=== PATIENT | female | born 1995 | race Caucasian/White ===

== ENCOUNTER → 2016-12-07 | Outpatient (REF) | payer OTHER ==
[2016-12-07 18:35] LABS: MEAN CORPUSCULAR HEMOGLOBIN 30.7 pg (27.0-33.0); MEAN CORPUSCULAR HGB CONC 33.4 g/dl (32.0-36.5); MEAN CORPUSCULAR VOLUME 91.9 fl (80.0-96.0); RED CELL DISTRIBUTION WIDTH 12.9 % (11.5-14.5); WHITE BLOOD COUNT 8.1 K/mm3 (4.0-10.0)
[2016-12-07 19:31] LABS: HCG, SERUM QUANTITATIVE 7236 MIU/ML
== END ==
LOC: M LAB REF 16:50
PROVIDERS: ATTEND Advanced Practice Midwife
DX: O36.80X0 Pregnancy with inconclusive fetal viability, not applicable or unspecified (principal); Z32.01 Encounter for pregnancy test, result positive; Z3A.00 Weeks of gestation of pregnancy not specified

== ENCOUNTER 2017-02-14 15:53 | Emergency (ER) | payer MEDICAID, OTHER, SELFPAY ==
[~2017-02-14] VITALS: Ht 160 cm; Wt 49.1 kg
[2017-02-14] MEDS ORDERED: NS 1,000 ML IV ONE (16:30)
[2017-02-14] MEDS ORDERED: ONDANSETRON 4MG/2ML VIAL (J2405) IV ONE (16:45)
[2017-02-14 17:45] VITALS: BP 110/58
== END 2017-02-14 17:50 | disposition home or self-care (01) ==
LOC: M ED 15:53
DX: O21.9 Vomiting of pregnancy, unspecified (principal); Z3A.15 15 weeks gestation of pregnancy
CPT/HCPCS: 96374; 99283; J2405

== ENCOUNTER 2017-04-06 07:58 | Outpatient (CLI) | payer SELFPAY, MEDICAID ==
[~2017-04-06] VITALS: Ht 160 cm; Wt 53.0 kg
[2017-04-06 08:10] VITALS: BP 119/70
[2017-04-06] MEDS ORDERED: PRENTAB9 PO (08:47)
[2017-04-06 10:00] VITALS: BP 106/63
--- NOTE | 2017-04-20 14:22 | IPNPDOC ---
Text Note Date of Service The patient was seen on 04/06/17 at 10:00. NOTE Subjective: Patient is a 22 year-old female who is a at 22.2 weeks gestation with an WM of 08/08/17 based off of her 1st trimester ultrasound. She presents to L&D today after being sent over from work for cramping. She reports that she hasn't drank much fluid. States the cramping started when she got to work at 0700. She denies vaginal bleeding, leaking of fluid or vaginal bleeding. Reports urine being very dark and almost red. Reports active movement. Objective: FHR baseline 150. Contractions: none noted on EFM. Abdomen: gravid, nontender to palpation. No CVA tenderness. Vital signs: see below. UA: see below. Assessment: IUP at 22.2 weeks gestation, cramping, not in labor Plan: UA/C&S sent to lab. Patient given 900 cc of fluid and encouraged to drink fluid. After drinking fluid patient reports that cramping was gone and it was noted that her urine was yellow and not red. Patient to be discharged to home and is to follow up with her scheduled OB appointments. Patient encouraged to drink half her body weight in ounces daily. Reviewed the importance of staying hydrated during . Reviewed access to care and danger signs to report. VS,Fishbone, I+O VS, Fishbone, I+O Vital Signs Label Value Date Time Patient Temperature 99.2 degrees F 04/06/17 0810 Temperature Source Temporal 04/06/17 0810 Pulse 100 04/06/17 0810 Respiratory Rate 18 bpm 04/06/17 0810 Blood Pressure Assessment 119/70 (86) 04/06/17 0810 Source Automatic Cuff (NIBP) Pulse 90 04/06/17 1000 Respiratory Rate 18 bpm 04/06/17 1000 Blood Pressure Assessment 106/63 (77) 04/06/17 1000 Source Automatic Cuff (NIBP) Item Value Date Time Urine Color RED H 04/06/17 0857 Urine Appearance CLOUDY H 04/06/17 0857 Urine pH 5.0 UNITS 04/06/17 0857 Urine Specific Adell 1.017 04/06/17 0857 Urine Protein 2+ mg/dL H 04/06/17 0857 Urine Glucose (UA) NEGATIVE mg/dL 8/22/17 0857 Urine Ketones NEGATIVE mg/dL 04/06/17856 Urine Blood 3+ H 04/06/17856 Urine Nitrite NEGATIVE 04/06/17856 Urine Bilirubin NEGATIVE 04/06/17856 Urine Urobilinogen 0.2 mg/dL 04/06/17856 Urine WBC (Auto) 7 /HPF H 04/06/17856 Urine RBC (Auto) TNTC /HPF H 04/06/17856 Urine Hyaline Casts (Auto) 0 /LPF 04/06/17856 Urine Bacteria (Auto) NEGATIVE 04/06/17856 Urine Squamous Epithelial Cells 2 /HPF 04/06/17856 Urine Leukocyte Esterase NEGATIVE 04/06/17856 SPEC #: [id number] ANUSHKA: 04/06/17 STATUS: COMP REQ #: [id number] RECD: 04/06/[address]: REGGIE MASSEY SOURCE: URINE CC ENTR: 04/06/[address]: Salas GrahamESC: COMP: 04/07/17 ORDERED: URINE CULT ACT WKST: NEW 04/07/17 #1 Procedure Result Site DEPARTMENT OF MICROBIOLOGY ROUTINE CULTURE RESULTS URINE CULTURE Final FULL REPORT IN LAB NOTES (eCW and [facility]). NO GROWTH REGGIE MASSEY CNM Apr 20, 2017 14:22
== END 2017-04-06 11:50 | disposition home or self-care (01) ==
LOC: M LDO 07:58
PROVIDERS: ATTEND Obstetrics & Gynecology
DX: O26.892 Other specified pregnancy related conditions, second trimester (principal); Z3A.22 22 weeks gestation of pregnancy; R10.9 Unspecified abdominal pain; Z88.2 Allergy status to sulfonamides

== ENCOUNTER → 2017-05-20 | Outpatient (CLI) | payer MEDICAID, OTHER ==
[~2017-05-20] MED LIST: PRENTAB9 PO
[2017-05-20 16:28] LABS: MEAN CORPUSCULAR HEMOGLOBIN 30.6 pg (27.0-33.0); MEAN CORPUSCULAR HGB CONC 33.4 g/dl (32.0-36.5); MEAN CORPUSCULAR VOLUME 91.6 fl (80.0-96.0); RED CELL DISTRIBUTION WIDTH 12.6 % (11.5-14.5)
[2017-05-21 11:14] LABS: WHITE BLOOD COUNT 14.2 10^3/uL (4.0-10.0)
== END ==
LOC: M LAB 14:55
PROVIDERS: ATTEND Advanced Practice Midwife
DX: Z34.82 Encounter for supervision of other normal pregnancy, second trimester (principal)

== ENCOUNTER → 2017-07-06 | Outpatient (REF) | payer OTHER, MEDICAID | LOC: M LAB REF 16:34 | PROVIDERS: ATTEND Advanced Practice Midwife | DX: Z34.83 Encounter for supervision of other normal pregnancy, third trimester (principal); Z3A.35 35 weeks gestation of pregnancy ==

== ENCOUNTER 2017-07-30 12:07 | Inpatient (IN) | payer OTHER, MEDICAID ==
[~2017-07-30] VITALS: Ht 160 cm; Wt 61.5 kg
[2017-07-30 12:25] VITALS: BP 122/57
[2017-07-30] MEDS ORDERED: LACTATED RINGER'S 1000 ML IV ONE (13:15)
[2017-07-30] MEDS ORDERED: LR 1,000 ML IV SCH (15:02)
[2017-07-30 15:36] LABS: MEAN CORPUSCULAR HEMOGLOBIN 27.9 pg (27.0-33.0); MEAN CORPUSCULAR HGB CONC 32.2 g/dl (32.0-36.5); MEAN CORPUSCULAR VOLUME 86.9 fl (80.0-96.0); PLATELET COUNT, AUTOMATED 306 10^3/uL (150-450); RED CELL DISTRIBUTION WIDTH 14.7 % (11.5-14.5); WHITE BLOOD COUNT 13.5 10^3/uL (4.0-10.0)
[2017-07-30 19:17] VITALS: BP 115/65
[2017-07-30 19:38] VITALS: BP 122/57
--- NOTE | 2017-07-30 20:19 | HPE ---
DATE OF ADMISSION: 07/30/2017 Mila is a 22-year-old female 1, para 0 with an EDC of 08/08/2017, estimated gestational age (EGA) 38-6/7 weeks gestation who presented to labor and delivery with complaints of contractions every 3-4 minutes. She was monitored in labor and delivery for approximately 2 hours, found to be 3 cm, 80% with a fetus at -2. At this point she is being admitted for labor. Upon admission no bleeding. No leakage of fluid. Good movement. Her record reviewed, fetus has a agenesis of the right kidney. Other than that her course was essentially unremarkable. LABS: Blood type is O+, rubella immune, hepatitis negative, HIV negative, GC chlamydia negative, 1-hour sugar testing was within normal limits. Her GBS is negative. PAST MEDICAL HISTORY: 1. Significant for frequent urinary tract infections (UTIs) for which she has seen urology. 2. Migraines. PAST SURGICAL HISTORY: She had left foot surgery and bilateral tubes placed in the ears. SOCIAL HISTORY: She denies any alcohol, drug or cigarette smoking. FAMILY HISTORY: Significant for DVTs and diabetes. MEDICATIONS: vitamins. ALLERGIES: SULFA DRUGS. PHYSICAL EXAMINATION: Normal-appearing female in no acute distress. Abdomen: Soft, nontender, nondistended. Extremities: No clubbing, cyanosis or edema. Vaginal examination: 3 cm, 80% -2, fetus in the vertex position. Tracing reviewed: Category one tracing with contractions every 4-5 minutes. ASSESSMENT: 1. Intrauterine at 38-6/7 weeks gestation. 2. Early labor. PLAN: Admit to labor and delivery, continue IV fluid hydration. Routine labs sent. Pain management discussed. The patient opted for no pain meds at this point. Will continue to monitor to see if her labor progressed to active labor.
== END 2017-07-30 22:55 | disposition home or self-care (01) | DRG 565 ==
LOC: M LDO 12:07 → M LDI 15:03
PROVIDERS: ADMIT Obstetrics & Gynecology; ATTEND Obstetrics & Gynecology
DX: O47.1 False labor at or after 37 completed weeks of gestation (principal); Z3A.38 38 weeks gestation of pregnancy

== ENCOUNTER 2017-07-31 07:57 | Inpatient (IN) | payer OTHER, MEDICAID ==
[2017-07-31] VITALS (39 sets, daily range): BP systolic 98–142; BP diastolic 51–90
[~2017-07-31] VITALS: Ht 160 cm; Wt 62.8 kg
[2017-07-31] MEDS ORDERED: LACTATED RINGER'S 1000 ML IV STA (08:33)
[2017-07-31] MEDS ORDERED: LR 1,000 ML IV SCH (08:33)
--- NOTE | 2017-07-31 09:10 | HPE ---
DATE OF ADMISSION: 07/30/2017 REASON FOR VISIT: Contractions. HISTORY OF PRESENT ILLNESS: Ms. Barraza is a 22-year-old, 1, who presents at 38 weeks 4 days estimated gestational age by her last menstrual period and confirmed by first trimester ultrasound with complaints of contractions. She reports contractions throughout the day. She had presented to labor and delivery for evaluation. Initially, she 1 cm dilated and then progressed to 3 cm, 80% effaced, -2 station. Her course has been remarkable with a right renal akinesis. Her care was initiated in the first trimester at [facility] and has been appropriate throughout. PAST MEDICAL HISTORY: None. PAST SURGICAL HISTORY: She has had foot surgery. SOCIAL HISTORY: Denies any alcohol, tobacco, or drugs during her . MEDICATIONS: Include: - Tylenol - vitamins - iron - Colace ALLERGIES: SULFA ANTIBIOTICS PHYSICAL EXAMINATION: VITAL SIGNS: Stable. She is afebrile. She has category 1 heart rate tracing with contractions 4 to 5 minutes apart, initially spaced out with prolonged monitoring. GENERAL APPEARANCE: Well appearing. No acute distress. LUNGS: Clear to auscultation bilaterally. CARDIOVASCULAR: Heart regular rate and rhythm. ABDOMEN: Gravid, nontender. CERVICAL EXAMINATION: She was initially assessed and was 3 cm dilated, 80% effaced, -2 station. After several hours, Ms. Barraza was reevaluated and cervical examination was no change after approximately 6 hours. LABORATORY DATA: laboratories: O positive, antibody screen negative. Rubella equivocal. RPR nonreactive. Hepatitis surface antigen negative. HIV negative. Hepatitis C nonreactive. Chlamydia and gonorrhea screens were negative. She has a normal one-hour Glucola. She is Group B streptococcus (GBS) negative. ASSESSMENT: 1. Ms. Barraza is a 22-year-old, 1, at 38 weeks 5 days estimated gestational age with contractions, not in active labor. 2. Reassuring status. PLAN: The patient was given the option for reevaluation over the next couple of hours or to be released to go home and will return with increased contractions or leakage of fluid. After discussion, the patient desires to be released home. She was given labor precautions. She will be followed up with her primary planner/scheduler on Wednesday for induction of labor. YORDAN
[2017-07-31 09:13] LABS: MEAN CORPUSCULAR HEMOGLOBIN 28.3 pg (27.0-33.0); MEAN CORPUSCULAR HGB CONC 32.9 g/dl (32.0-36.5); MEAN CORPUSCULAR VOLUME 85.9 fl (80.0-96.0); PLATELET COUNT, AUTOMATED 272 10^3/uL (150-450); RED CELL DISTRIBUTION WIDTH 14.6 % (11.5-14.5); WHITE BLOOD COUNT 13.6 10^3/uL (4.0-10.0)
[2017-07-31] MEDS ORDERED: FENTANYL 2MCG/ML ROPIVACAINE 0.2% IN 0.9% NACL 200ML IVBAG As Ordered ONE (10:03)
[2017-07-31] MEDS ORDERED: diphenhydrAMINE INJ 50MG/ML VIAL (J1200) IV PRN (11:00)
[2017-07-31] MEDS ORDERED: REFRIGERATOR IV KEYS XX PRN (11:00)
[2017-07-31] MEDS ORDERED: LACTATED RINGER'S 1000 ML IV PRN (11:00)
[2017-07-31] MEDS ORDERED: EPIDURAL/PCA KEYS XX PRN (11:00)
[2017-07-31] MEDS ORDERED: FENTANYL/ROPIVACAINE/NACL BAG 200 ML EPIDURAL SCH (11:00)
[2017-07-31] MEDS ORDERED: EPIDURAL COMMENT XX SCH (11:00)
[2017-07-31] MEDS ORDERED: ONDANSETRON 4MG/2ML VIAL (J2405) IV PRN (11:00)
[2017-07-31] MEDS ORDERED: NALOXONE INJ 0.4 MG/1 ML VIAL (J2310) IV PRN (11:00)
[2017-07-31] MEDS ORDERED: ePHEDrine SULFATE 25 MG/5 ML(5MG/ML) SYRINGE IV PRN (11:00)
[2017-07-31] MEDS ORDERED: OXYTOCIN 30 UNITS IN 0.9% NaCl 500ML IV BAG (J2590) As Ordered ONE (13:41)
[2017-07-31] MEDS ORDERED: OXYTOCIN DRIP 30 UNITS in APPROPRIATE DILUENT 1 EA IV SCH (16:41)
[2017-07-31] MEDS ORDERED: IBUPROFEN 800 MG TAB PO PRN (16:45)
[2017-07-31] MEDS ORDERED: ANUSOL HC CREAM 30GM TOP PRN (16:45)
[2017-07-31] MEDS ORDERED: MOM 30ML SUSPENSION UDC PO PRN (16:45)
[2017-07-31] MEDS ORDERED: MEASLES,MUMPS,RUBELLA VACCINE INJ (MMR-II) (90707) SC SCH (16:45)
[2017-07-31] MEDS ORDERED: DIBUCAINE 1% OINTMENT 30GM TOP PRN (16:45)
[2017-07-31] MEDS ORDERED: METHYLERGONOVINE MALEATE 0.2 MG TAB PO PRN (16:45)
[2017-07-31] MEDS ORDERED: RHOGAM 300 MCG (1500 IU) INJ (J2790) IM SCH (16:45)
[2017-07-31] MEDS ORDERED: ACETAMINOPHEN 500 MG TAB PO PRN (16:45)
[2017-07-31] MEDS ORDERED: DOCUSATE SODIUM 100 MG CAP PO PRN (16:45)
--- NOTE | 2017-07-31 20:49 | HPE ---
DATE OF ADMISSION: 07/31/2017 REASON FOR ADMISSION: Labor. HISTORY OF PRESENT ILLNESS: Ms. Barraza is a 22-year-old, 1, who presents at 38 weeks 5 days estimated gestational age by her last menstrual period, confirmed by a first trimester ultrasound, with complaints of contractions. She reports contractions that have increased in frequency and intensity throughout the evening and morning. She reports active movement. Denies any vaginal bleeding or leakage of fluid. Her course has been remarkable for right renal agenesis. Her care was initiated in the first trimester at [facility] and has been appropriate throughout. PAST MEDICAL HISTORY: None. PAST SURGICAL HISTORY: She had foot surgery. SOCIAL HISTORY: Denies any alcohol, tobacco, or drug use during her . MEDICATIONS: Includes Tylenol, vitamins, iron, and Colace. ALLERGIES: She has allergies to SULFA ANTIBIOTICS. PHYSICAL EXAMINATION: Her vital signs are stable. She is afebrile. She has a category 1 heart rate tracing with contractions approximately every 3 minutes. GENERAL APPEARANCE: Well-appearing. No acute distress. LUNGS: Clear to auscultation bilaterally. CARDIOVASCULAR: Heart regular rate and rhythm. ABDOMEN: Nontender, gravid. CERVICAL EXAM: She is 5 cm dilated, 90% effaced, 0 station. LABORATORY DATA: labs: Blood type is O positive. Antibody screen is negative. Rubella is equivocal. RPR is nonreactive. Hepatitis surface antigen is negative. HIV is negative. Hepatitis C is nonreactive. Chlamydia and gonorrhea screens are negative. She had a normal 1-hour Glucola. She is group B Streptococcus (GBS) negative. ASSESSMENT: 1. Ms. Barraza is a 22-year-old, 1, at 38 weeks 6 days estimated gestational age, here in active labor. 2. Reassuring status. PLAN: 1. Admit to labor and delivery. Complete blood count (CBC), rapid plasma reagin (RPR), type and screen, urine toxicology screen. 2. The patient is a good candidate for an epidural. 3. Anticipate spontaneous vaginal delivery.
--- NOTE | 2017-07-31 20:53 | DN ---
DATE OF DELIVERY: 07/31/2017 TIME OF : 1607 hours. GENDER: Male. SCORES: 9 and 10. WEIGHT: 3300 grams or 7 pounds 4 ounces. ANESTHESIA: Epidural. LACERATIONS: None. ESTIMATED BLOOD LOSS: 300 mL. COUNTS: Five laparotomy sponges accounted for prior to and after delivery. DELIVERY NOTE: On 07/31/2017, at 1607 hours, Ms. Barraza, a 22-year-old, 1, now para 1, had a spontaneous vaginal delivery of a live born male , scores 9 and 10, weight 3300 grams or 7 pounds 4 ounces. Head was delivered left occiput anterior (ELIZABETH) over an intact perineum, followed by delivery of right anterior shoulder, left posterior shoulder, and corpus. Infant was then handed to mom with a good cry. Cord was clamped times two and was cut by support person under my direction. Cord blood was then obtained. Placenta was drained and delivered grossly intact. A premixed bag of 500 mL of normal saline with 30 units of Pitocin was bolused, along with uterine massage, until the uterus was firm. On inspection, cervix, vagina, and perineum was grossly intact and hemostatic. Mom and baby recovering in stable condition. She has decided to name her son Earnest.
[2017-08-01 06:21] VITALS: BP 118/65
[2017-08-01] MEDS: PRENATAL VITAMINS CHEWABLE TABLET PO SCH (10:37)
[2017-08-01 17:57] VITALS: BP 110/71
[2017-08-02 06:05] VITALS: BP 116/59
[2017-08-02] MEDS: PRENATAL VITAMINS CHEWABLE TABLET PO SCH (07:35)
[2017-08-02] MEDS ORDERED: ACET50TA PO (09:36)
[2017-08-02] MEDS ORDERED: MILKSUS PO (09:36)
[2017-08-02] MEDS ORDERED: IBUP-1114 PO (09:36)
[2017-08-02] MEDS ORDERED: COLA100C5 PO (09:36)
== END 2017-08-02 10:25 | disposition home or self-care (01) | DRG 560 ==
LOC: M LDO 07:57 → M LDI 08:21 → M OBS 17:55
PROVIDERS: ADMIT Obstetrics & Gynecology; ATTEND Obstetrics & Gynecology
PROC: 10E0XZZ Delivery of Products of Conception, External Approach (ICD-10-PCS; principal; 2017-07-31)
DX: O80 Encounter for full-term uncomplicated delivery (principal); Z37.0 Single live birth; Z3A.38 38 weeks gestation of pregnancy; Z88.2 Allergy status to sulfonamides

== ENCOUNTER 2018-02-12 20:29 | Emergency (ER) | payer OTHER, MEDICAID | END 2018-02-12 22:21 | disposition home or self-care (01) | LOC: M ED 20:29 | DX: J03.90 Acute tonsillitis, unspecified (principal); J32.9 Chronic sinusitis, unspecified; Z88.2 Allergy status to sulfonamides | CPT/HCPCS: 87880 ==

== ENCOUNTER → 2018-08-26 | Outpatient (REF) | payer MEDICAID ==
[~2018-08-26] MED LIST changes: +AMOX500C PO; +COLA100C5 PO; +IBUP-1114 PO; +MAPA500T2 PO; +MILK120011 PO
[2018-08-26 15:55] LABS: CHLAMYDIA DNA AMPLIFICATION NEGATIVE (NEGATIVE); GC DNA AMPLIFICATION NEGATIVE (NEGATIVE)
== END ==
LOC: M LAB REF 12:52
PROVIDERS: ATTEND Advanced Practice Midwife
DX: Z34.83 Encounter for supervision of other normal pregnancy, third trimester (principal); Z36.89 Encounter for other specified antenatal screening

== ENCOUNTER → 2018-08-29 | Outpatient (CLI) | payer MEDICAID ==
--- NOTE | 2018-08-29 20:37 | REP ---
Obstetric sonography: History: Supervision of , for anatomy. Findings: Scanning through the gravid uterus demonstrates a viable single intrauterine gestation in a cephalic lie. motion is observed and heart rate is recorded at 133 beats per minute. A posterior left lateral placenta is seen grade 2 without evidence of previa or abruption. Amniotic fluid is subjectively normal. Closed cervical length measured transabdominally is 2.7 cm. No extrauterine abnormalities observed. Umbilical cord is seen draping across the shoulders. No anomaly is seen. The following anatomic structures are less than optimally seen today due to position and advanced gestational age: Cerebellum posterior fossa, facial profile, upper and lower extremities. The following additional anatomic structures are identified today and felt to be unremarkable: cranium, choroid plexus, cavum, lungs, four-chamber heart with left and right ventricular outflow tract views, diaphragm, left-sided stomach, abdominal wall, cord insertion, three-vessel umbilical cord, kidneys and bladder and spine. Biometry chart: BPD 8.7 cm 35 weeks 1 day Head circumference 30.6 cm 34 weeks 1 day Abdominal fourth 28.8 cm 32 weeks 6 days Femur length 6.4 cm 33 weeks 0 days Humeral length 5.6 cm 32 weeks 4 days HC/AC ratio normal 1.06, cephalic index normal 0.81, estimated weight with 2145 grams, 4 pounds 11 ounces, 30th percentile for 34 weeks 1 day. Impression: Viable single intrauterine gestation at 33 weeks 4 days by today's composite sonographic criteria. WM by today's sonography October 13, 2018. anatomic survey is less than complete as above. Electronically Signed by Zacarias Gu MD 08/30/2018 10:40 A
== END ==
LOC: M RAD 13:59
PROVIDERS: ATTEND Advanced Practice Midwife
DX: Z36.89 Encounter for other specified antenatal screening (principal); Z3A.35 35 weeks gestation of pregnancy

== ENCOUNTER → 2018-09-01 | Outpatient (CLI) | payer MEDICAID | LOC: M SMT 14:20 | PROVIDERS: ATTEND Advanced Practice Midwife | DX: Z34.83 Encounter for supervision of other normal pregnancy, third trimester (principal) ==

== ENCOUNTER → 2018-09-09 | Outpatient (REF) | payer MEDICAID | LOC: M LAB REF 09:45 | PROVIDERS: ATTEND Advanced Practice Midwife | DX: Z34.83 Encounter for supervision of other normal pregnancy, third trimester (principal) ==

== ENCOUNTER 2018-10-05 18:25 | Inpatient (IN) | payer MEDICAID, OTHER ==
[2018-10-05] VITALS (14 sets, daily range): BP systolic 110–134; BP diastolic 56–90
[~2018-10-05] VITALS: Ht 160 cm; Wt 61.9 kg
--- NOTE | 2018-10-05 19:12 | HPEPDOC ---
Obstetrical History & Physical General Date of Admission Oct 05, 2018 at 18:25 Primary Care Physician: REGGIE MASSEY CNM History of Present Illness Patient is a 23-year-old female who is a at 39.3 weeks with an WM of 10/09/18. She initiated care in her second trimester in [place] and transferred to [facility] in her 3rd trimester. Her has been uncomplicated. She presents to L&D in active labor. She reports painful contractions. Patient denies leaking of fluid, vaginal bleeding. States active movement. Chief Complaint: Active Labor Information Provided By: Patient Age: 23 : 2 Term: 1 Pre-term: 0 Abortions: 0 Livin Care Care: Good Care Dating Final EDC: Oct 09, 2018 EGA at Admission: 39.3 Antepartum Course Height (inches): 63 Pre- weight (lbs.): 111 Admission Weight (lbs.): 139 Change in Weight (lbs.): 28 Past Medical History Past Obstetrical History : Past Obstetrical History: Primgravida Gestation: 39 Type of Delivery: Spontaneous Vaginal Del. 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 Surgical History: Other (tympanostomy tube insertion, surgical correction of hammer toes) Family History Significant Family History: Diabetes Family History Stroke, pulmonary emboli, kidney disease Social History Social history Patient has moved home while her is in training in [place] to have social support from her family. Marital Status: Family situation: Spouse/partner home Psychosocial History: No pertinent psych hx * Smoker: non-smoker Alcohol: Denies Drugs: denies Abuse Violence Screening Have you been hit/kicked/slapp: No Have you been sexually assault: No Imunizations Tdap status: current Influenza Status: current Allergies Coded Allergies: Sulfa Antibiotics (Verified Allergy, Intermediate, HIVES, 02/25/15) Medications Scheduled Multivitamins/ ( 27-0.8 mg) 1 Tab Tab, 1 TAB PO DAILY Physical Examination Physical Examination GENERAL: Alert and oriented times three. BREAST: . ABDOMEN: Gravid and non-tender to touch. FETUS: Is vertex (VTX) by sterile vaginal examination (SVE), fetus is vertex (VTX) by John. HEART RATE: Regular rate and rhythm. LUNGS: Clear to auscultation (CTA). EXTREMITIES: No edema. No clonus. Deep tendon reflexes (DTRs) + . Laboratory Data Urine Culture: No Growth Pertinent Laboratoy Data Blood Type: O+ RBC Antibody Screen: Negative HIV: Negative Hepatitis B: Negative Hepatitis C: Negative Rapid Plasma Reagin: Nonreactive Rubella: Immune Chlamydia/Gonorrhea: Negative Group B Streptococcus: Negative Quad Screen Test: Negative Glucose Tolerance Test: 59 Anatomy Ultrasound Ultrasound Date: Aug 29, 2018 Placenta Location: Posterior Normal Anatomy: Yes Placenta Previa: No Estimated Weight (grams): 2145 Vaginal Examination Dilation: 5 cm Effacement: 100% Station: 0 Presentation: Cephalic presentation Position: Vertex (occiput) Assessment Heart Rate (FHR): 140 Variability: Moderate Accelerations: Positive Decelerations: None Tocometer Contractions: Yes Frequency: regular, other (every 2-3 minutes) Assessment/Plan Assessment IUP at 39.3 weeks gestation GBS negative Active labor Category I FHR tracing Plan Admit to L&D. OOB ad leonila. Diet: clears. Group B Streptococcus (GBS) negative. Labs and intravenous (IV) per unit protocol. Lactated Ringers (LR): bolus as needed. Bolus LR 800cc prior to epidural-if patient decided she desires one. Anesthesia consult per patient's request. Anticipate cervical change and . REGGIE MASSEY CNM Oct 05, 2018 19:12
[2018-10-05 19:48] LABS: HEMOGLOBIN 9.9 g/dl (12.0-15.5); MEAN CORPUSCULAR HEMOGLOBIN 25.1 pg (27.0-33.0); MEAN CORPUSCULAR HGB CONC 31.9 g/dl (32.0-36.5); MEAN CORPUSCULAR VOLUME 78.5 fl (80.0-96.0); PLATELET COUNT, AUTOMATED 278 10^3/uL (150-450); RED BLOOD COUNT 3.95 10^6/uL (4.00-5.40); WHITE BLOOD COUNT 14.2 10^3/uL (4.0-10.0)
[2018-10-05] MEDS ORDERED: FENTANYL 2MCG/ML ROPIVACAINE 0.2% IN 0.9% NACL 100ML IVBAG As Ordered ONE (19:49)
[2018-10-05] MEDS ORDERED: EPIDURAL COMMENT XX SCH (20:45)
[2018-10-05] MEDS ORDERED: diphenhydrAMINE INJ 50MG/ML VIAL (J1200) IV PRN (20:45)
[2018-10-05] MEDS ORDERED: LACTATED RINGER'S 1000 ML IV PRN (20:45)
[2018-10-05] MEDS ORDERED: NALOXONE INJ 0.4 MG/1 ML VIAL (J2310) IV PRN (20:45)
[2018-10-05] MEDS ORDERED: REFRIGERATOR IV KEYS XX PRN (20:45)
[2018-10-05] MEDS ORDERED: ONDANSETRON 4MG/2ML VIAL (J2405) IV PRN (20:45)
[2018-10-05] MEDS ORDERED: ePHEDrine SULFATE 25 MG/5 ML(5MG/ML) SYRINGE IV PRN (20:45)
[2018-10-05] MEDS ORDERED: EPIDURAL/PCA KEYS XX PRN (20:45)
[2018-10-05] MEDS ORDERED: FENTANYL/ROPIVACAINE/NACL BAG 100 ML EPIDURAL SCH (20:45)
--- NOTE | 2018-10-05 20:50 | IPNPDOC ---
Obstetrical Progress Note Date of Service Oct 05, 2018 Subjective Patient is comfortable with her epidural. Objective Vital Signs Date Time Temp Pulse Resp B/P (MAP) Pulse Ox O2 Delivery O2 Flow Rate FiO2 10/05/18 18:58 99.1 110 16 117/82 (94) Assessment Heart Rate (FHR): 135 Variability: Moderate Accelerations: Positive Decelerations: None Heart Rate Tracing: Category I Tocometer Contractions: Yes Frequency: regular, other (every 2 to 3 minutes) Sterile Vaginal Examination Dilation: 6 cm Effacement (%): 100% Station: 0 Postion/Presentation: Cephalic presentation Assessment and Plan Age: 23 : 2 Term: 1 Pre-term: 0 Abortions: 0 Livin Weeks & Days 39.3 Status: Reassuring Group B Streptococcus: Negative Anticipate: Vaginal Delivery Additional Comments AROM to a moderate amount of clear fluid. Will consider starting IV Pitocin. REGGIE MASSEY CNM Oct 05, 2018 20:50
[2018-10-05] MEDS ORDERED: OXYTOCIN 30 UNITS IN 0.9% NaCl 500ML IV BAG (J2590) As Ordered ONE (20:55)
[2018-10-05] MEDS ORDERED: OXYTOCIN DRIP 30 UNITS in APPROPRIATE DILUENT 1 EA IV SCH ×2 (21:00→22:14)
[2018-10-05] MEDS ORDERED: MEASLES,MUMPS,RUBELLA VACCINE INJ (MMR-II) (90707) SC SCH (22:15)
[2018-10-05] MEDS ORDERED: DOCUSATE SODIUM 100 MG CAP PO PRN (22:15)
[2018-10-05] MEDS ORDERED: METHYLERGONOVINE MALEATE 0.2 MG TAB PO PRN (22:15)
[2018-10-05] MEDS ORDERED: RHOGAM 300 MCG (1500 IU) INJ (J2790) IM SCH (22:15)
[2018-10-05] MEDS ORDERED: ACETAMINOPHEN 500 MG TAB PO PRN (22:15)
[2018-10-05] MEDS ORDERED: DIBUCAINE 1% OINTMENT 30GM TOP PRN (22:15)
[2018-10-05] MEDS ORDERED: ANUSOL HC CREAM 30GM TOP PRN (22:15)
[2018-10-05] MEDS ORDERED: IBUPROFEN 800 MG TAB PO PRN (22:15)
--- NOTE | 2018-10-05 22:42 | DNPDOC ---
[facility] Delivery Note Delivery Note DATE OF DELIVERY: 10/05/2018 at 2151 PREDELIVERY DIAGNOSIS: 39-3/7 weeks' gestation and labor. POST DELIVERY DIAGNOSIS: Delivered. PROCEDURE: Spontaneous vaginal delivery. [employer]: Reggie Koo CNM, JOSE ANESTHESIA: epidural. ESTIMATED BLOOD LOSS: 250 mL. FINDINGS: 6 pounds 10 ounces; 3010 grams; female , Score 9/9. DELIVERY SUMMARY: Patient is a 23-year-old female who is now a at 39.3 weeks gestation who presented in active labor. She received an epidural for pain management. The patient progressed to fully dilated at 2144 and pushed to a live female infant in an STEFANIE position with restitution to ROT at 2151. The anterior shoulder delivered with ease and the corpus immediately followed. The baby was placed [id number] active and crying. The cord was clamped x2 after pulsation ceased and cut by the patient's father. A 3 -vessel cord was noted. The placenta delivered spontaneously and intact at 2159. Uterine hemostasis was achieved via rapid infusion of IV Pitocin and fundal massage. The perineum and vagina were inspected and found to be intact. Mom plans to breastfeed her . she is naming her "Felipa." both mom and baby re in stable condition. REGGIE KOO CNM Oct 05, 2018 22:42
[2018-10-06] VITALS: BP 113/59
[2018-10-06 05:53] VITALS: BP 113/56
[2018-10-06] MEDS: PRENATAL VITAMINS CHEWABLE TABLET PO SCH (09:34)
[2018-10-06 18:00] VITALS: BP 108/72
[2018-10-07 06:11] VITALS: BP 108/57
[2018-10-07] MEDS: PRENATAL VITAMINS CHEWABLE TABLET PO SCH (07:45)
[2018-10-07] MEDS ORDERED: IBUP-1114 PO (08:36)
[2018-10-07] MEDS ORDERED: COLA100C5 PO (08:36)
[2018-10-07] MEDS ORDERED: MAPA500T2 PO (08:36)
== END 2018-10-07 13:00 | disposition home or self-care (01) | DRG 560 ==
LOC: M LDI 18:25 → M OBS 10-06 03:22
PROVIDERS: ADMIT Advanced Practice Midwife; ATTEND Advanced Practice Midwife
PROC: 10E0XZZ Delivery of Products of Conception, External Approach (ICD-10-PCS; principal; 2018-10-05)
PROC: 10907ZC Drainage of Amniotic Fluid, Therapeutic from Products of Conception, Via Natural or Artificial Opening (ICD-10-PCS; 2018-10-05)
DX: O80 Encounter for full-term uncomplicated delivery (principal); Z37.0 Single live birth; Z3A.39 39 weeks gestation of pregnancy

== ENCOUNTER → 2018-11-11 | Outpatient (REF) | payer MEDICAID | LOC: M LAB REF 17:00 | PROVIDERS: ATTEND Advanced Practice Midwife | DX: R33.9 Retention of urine, unspecified (principal) ==

== ENCOUNTER → 2020-02-15 | Outpatient (CLI) | payer OTHER | LOC: M LABSMTC 12:51 | PROVIDERS: ATTEND Pediatrics | DX: Z03.818 Encounter for observation for suspected exposure to other biological agents ruled out (principal); Z11.59 Encounter for screening for other viral diseases | CPT/HCPCS: C9803; U0002 ==

== ENCOUNTER → 2021-12-16 | Outpatient (CLI) | payer OTHER | LOC: M WHC 12:50 | PROVIDERS: ATTEND Advanced Practice Midwife | DX: R10.2 Pelvic and perineal pain (principal); Z30.431 Encounter for routine checking of intrauterine contraceptive device ==

== ENCOUNTER → 2021-12-18 | Outpatient (REF) | payer OTHER, MEDICAID | LOC: M PLALAB 08:32 | PROVIDERS: ATTEND Advanced Practice Midwife | DX: Z12.4 Encounter for screening for malignant neoplasm of cervix (principal) ==

== ENCOUNTER → 2022-08-14 | Outpatient (REF) | payer OTHER ==
[2022-08-14 21:31] LABS: APPEARANCE, URINE MANUAL HAZY (CLEAR); COLOR, URINE MANUAL YELLOW (YELLOW)
[2022-08-14 21:32] LABS: BILIRUBIN, URINE MANUAL NEGATIVE (NEGATIVE); BLOOD URINE MANUAL POSITIVE (NEGATIVE); GLUCOSE, URINE (UA) MANUAL NEGATIVE (NEGATIVE); KETONE, URINE MANUAL NEGATIVE (NEGATIVE); LEUKOCYTE ESTERASE, URINE MAN POSITIVE (NEGATIVE); NITRITE, URINE MANUAL POSITIVE (NEGATIVE); PROTEIN, URINE MANUAL NEGATIVE (NEGATIVE); UROBILINOGEN, URINE MANUAL NORMAL (NORMAL)
[2022-08-14 21:43] LABS: BACTERIA, URINE LARGE AMOUNT; HYALINE CAST, URINE NONE SEEN /lpf (0-1); RBC, URINE TNTC /hpf (0-3); SQUAMOUS EPITHELIAL CELL URINE SMALL AMOUNT /hpf (SMALL AMT); WBC, URINE TNTC /hpf (0-3)
== END ==
LOC: M LAB REF 21:20
PROVIDERS: ATTEND Physician Assistant Medical
DX: N39.0 Urinary tract infection, site not specified (principal)

== ENCOUNTER → 2023-01-15 | Outpatient (REF) | payer OTHER, MEDICAID ==
[2023-01-15 19:53] LABS: GC DNA AMPLIFICATION NEGATIVE (NEGATIVE)
== END ==
LOC: M SFHCWAGY 17:24
PROVIDERS: ATTEND Advanced Practice Midwife
DX: Z12.4 Encounter for screening for malignant neoplasm of cervix (principal); Z11.3 Encounter for screening for infections with a predominantly sexual mode of transmission; R87.612 Low grade squamous intraepithelial lesion on cytologic smear of cervix (LGSIL)

== ENCOUNTER → 2023-07-05 | Outpatient (REF) | payer OTHER | LOC: M LAB REF 17:15 | PROVIDERS: ATTEND Physician Assistant Medical | DX: J02.9 Acute pharyngitis, unspecified (principal) ==

== ENCOUNTER → 2023-07-06 | Outpatient (REF) ==
[2023-07-06 10:15] LABS: RSV AMPLIFICATION NEGATIVE (NEGATIVE)
== END ==
LOC: M EMP 08:47
PROVIDERS: ATTEND Family Medicine
DX: Z11.52 Encounter for screening for COVID-19 (principal)

== ENCOUNTER → 2024-09-14 | Outpatient (REF) | LOC: M EMP 08:47 | PROVIDERS: ATTEND Family Medicine | DX: Z01.89 Encounter for other specified special examinations (principal) ==

== ENCOUNTER → 2024-09-25 | Outpatient (REF) | payer OTHER, MEDICAID ==
[2024-09-25 14:27] LABS: Trichomonas vaginalis (AMP) NOT DETECTED (NEGATIVE)
[2024-09-25 14:50] LABS: GC DNA AMPLIFICATION NEGATIVE (NEGATIVE)
[2024-09-27 14:23] LABS: HPV APTIMA Detected (Not Detected)
== END ==
LOC: M SFHCWAGY 12:51
PROVIDERS: ATTEND Obstetrics & Gynecology
DX: Z12.4 Encounter for screening for malignant neoplasm of cervix (principal); Z11.51 Encounter for screening for human papillomavirus (HPV); Z11.3 Encounter for screening for infections with a predominantly sexual mode of transmission; R87.612 Low grade squamous intraepithelial lesion on cytologic smear of cervix (LGSIL)

== ENCOUNTER → 2024-10-27 | Outpatient (REF) | payer MEDICAID, OTHER | LOC: M PLALAB 14:04 | PROVIDERS: ATTEND Obstetrics & Gynecology | DX: N87.0 Mild cervical dysplasia (principal) ==

== ENCOUNTER → 2025-08-08 | Outpatient (REF) | LOC: M EMP 08:31 | PROVIDERS: ATTEND Family Medicine | DX: Z01.89 Encounter for other specified special examinations (principal) ==